=== PATIENT | female | born 1945 | race Caucasian/White ===

== ENCOUNTER 2021-10-17 10:40 | Emergency (ER) | payer MEDICARE, MEDICAID ==
[~2021-10-17] VITALS: Ht 170 cm; Wt 77.0 kg
[2021-10-17] MEDS ORDERED: ONDANSETRON 4 MG/2 ML (SDV) Z0FRAN ONE (10:50)
[2021-10-17] MEDS ORDERED: fentaNYL INJ 100 MCG/2 ML AMP ONE (10:51)
[2021-10-17] MEDS ORDERED: NS IV 500 ML 500 ML ONE (10:51)
[2021-10-17 10:57] LABS: BASOPHILS % (AUTO) 0 % (0-10); EOSINOPHILS # (AUTO) 0.1 10^3/uL (0.0-0.3); EOSINOPHILS % (AUTO) 1 % (0-10); HEMATOCRIT 28 % (35-52); HEMOGLOBIN 8.2 g/dL (11.5-16.0); LYMPHOCYTES # (AUTO) 0.6 10^3/uL (1.0-4.0); LYMPHOCYTES % (AUTO) 9 % (12-44); MEAN CORPUSCULAR HEMOGLOBIN 28 pg (25-34); MEAN CORPUSCULAR HGB CONC 29 g/dL (32-36); MEAN CORPUSCULAR VOLUME 96 fL (80-99); MEAN PLATELET VOLUME 10.2 fL (9.0-12.2); MONOCYTES # (AUTO) 0.6 10^3/uL (0.0-1.0); MONOCYTES % (AUTO) 9 % (0-12); NEUTROPHILS # (AUTO) 5.2 10^3/uL (1.8-7.8); NEUTROPHILS % (AUTO) 80 % (42-75); PLATELET COUNT 117 10^3/uL (130-400); WHITE BLOOD COUNT 6.4 10^3/uL (4.3-11.0)
--- NOTE | 2021-10-17 10:58 | ED Abdominal Pain ---
General Chief Complaint: Abdominal/GI Problems Stated Complaint: ABD PAIN Nursing Triage Note: PT ARRIVED PER EMS FROM [facility]. PT CO OF ABD PAIN L SIDE ABD. CO OF DIARRHEA. PT STATES HAS NAUSEA. PT IS A DIALYSIS PT AND HAS DIALAYSIS CATHETER IN L ARM. PT WEARS O2 2L. PT IS IN REHAB D/T FALLS. Source of Information: Patient, EMS, [facility]way Records Exam Limitations: No Limitations History of Present Illness Date Seen by Provider: Oct 17, 2021 Time Seen by Provider: 10:41 Initial Comments The patient presents ER by EMS from [facility] where she has been for 5 days doing rehab after a history of multiple falls and subdural hemorrhage. She started having some pain yesterday evening in her left lower quadrant abdomen. This morning it was 10 out of 10. She is having copious loose diarrhea without blood in it. She was given a pain pill which she says did nothing for her pain. She has a history of gallbladder resection, appendectomy, hysterectomy. She has nausea but no vomiting. No fevers or chills. She does not know if she has a history of diverticulosis but denies a history of diverticulitis. She has no sick contacts. She is on hemodialysis and has a history of diabetes with a sugar of 95 per EMS. 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 She was due for dialysis today but elected to come to the ER instead. She can make it up on Sunday outpatient per staff. She is a full code. He has a history of COPD on 2 L of oxygen at baseline with no increased shortness of breath. She is on MiraLAX and Colace daily scheduled for loose stools. Patient states that earlier in the year she had lots of loose stools and some abdominal pain but nothing like this and was sent to [facility] and had a colonoscopy. She does not know the outcome of that work-up. Primary care in [facility]. She has never been to this facility before. Allergies and Home Medications Allergies Coded Allergies: bisacodyl (Verified Allergy, Unknown, 10/17/21) codeine (Verified Allergy, Unknown, 10/17/21) Patient Home Medication List Home Medication List Reviewed: Yes Review of Systems Review of Systems Constitutional: No chills EENTM: No Blurred Vision, No Double Vision Respiratory: Denies Cough, Denies Shortness of Air Cardiovascular: Denies Chest Pain, Denies Lightheadedness Gastrointestinal: See HPI; Denies Abdomen Distended; Abdominal Pain; Denies Constipated; Diarrhea, Nausea; Denies Vomiting Genitourinary: Denies Burning, Denies Discharge Musculoskeletal: No back pain, No joint pain All Other Systems Reviewed Negative Unless Noted: Yes Past Dqwpjay-Sxitun-Bkthah Hx Patient Social History Tobacco Use?: No Use of E-Cig and/or Vaping dev: No Physical Exam Vital Signs Vital Signs - First Documented 10/17/21 10:42 Temp 36.2 Pulse 61 Resp 16 B/P (MAP) 143/66 (91) Pulse Ox 100 O2 Delivery Nasal Cannula Capillary Refill : Less Than 3 Seconds Height/Weight/BMI Height: '" Weight: lbs. oz. kg; 26.00 BMI Method: General Appearance: mild distress, obese, other (Chronically ill) HEENT: PERRL/EOMI, pharynx normal Neck: full range of motion, supple, normal inspection Respiratory: lungs clear, normal breath sounds, no respiratory distress (Oxygen saturation in the upper 90s on 2 L at baseline), no accessory muscle use Cardiovascular: normal peripheral pulses (60s), regular rate, rhythm, no edema Peripheral Pulses: 2+ Dorsalis Pedis (R), 2+ Left Dors-Pedis (L) Gastrointestinal: normal bowel sounds, soft, tenderness (Left lower quadrant and suprapubic region) Extremities: non-tender, normal inspection, normal capillary refill Neurologic/Psychiatric: alert, oriented x 3, other (Mildly anxious) Skin: normal color, warm/dry Progress/Results/Core Measures Results/Orders Lab Results Laboratory Tests Test 10/17/21 10:46 10/17/21 10:53 10/17/21 11:15 Range/Units White Blood Count 6.4 4.3-11.0 10^3/uL Red Blood Count 2.91 L 3.80-5.11 10^6/uL Hemoglobin 8.2 L 11.5-16.0 g/dL Hematocrit 28 L 35-52 % Mean Corpuscular Volume 96 80-99 fL Mean Corpuscular Hemoglobin 28 25-34 pg Mean Corpuscular Hemoglobin Concent 29 L 32-36 g/dL Red Cell Distribution Width 15.1 H 10.0-14.5 % Platelet Count 117 L 130-400 10^3/uL Mean Platelet Volume 10.2 9.0-12.2 fL Immature Granulocyte % (Auto) 0 % Neutrophils (%) (Auto) 80 H 42-75 % Lymphocytes (%) (Auto) 9 L 12-44 % Monocytes (%) (Auto) 9 0-12 % Eosinophils (%) (Auto) 1 0-10 % Basophils (%) (Auto) 0 0-10 % Neutrophils # (Auto) 5.2 1.8-7.8 10^3/uL Lymphocytes # (Auto) 0.6 L 1.0-4.0 10^3/uL Monocytes # (Auto) 0.6 0.0-1.0 10^3/uL Eosinophils # (Auto) 0.1 0.0-0.3 10^3/uL Basophils # (Auto) 0.0 0.0-0.1 10^3/uL Immature Granulocyte # (Auto) 0.0 0.0-0.1 10^3/uL Percent Immature Platelet Fraction 3.3 0.0-7.6 % Sodium Level 132 L 135-145 MMOL/L Potassium Level 6.1 H 3.6-5.0 MMOL/L Chloride Level 97 L 98-107 MMOL/L Carbon Dioxide Level 24 21-32 MMOL/L Anion Gap 11 5-14 MMOL/L Blood Urea Nitrogen 51 H 7-18 MG/DL Creatinine 5.34 H 0.60-1.30 MG/DL Estimat Glomerular Filtration Rate 8 BUN/Creatinine Ratio 10 Glucose Level 81 70-105 MG/DL Calcium Level 10.1 8.5-10.1 MG/DL Corrected Calcium 10.7 H 8.5-10.1 MG/DL Total Bilirubin 0.7 0.1-1.0 MG/DL Aspartate Amino Transf (AST/SGOT) 51 H 5-34 U/L Alanine Aminotransferase (ALT/SGPT) 41 0-55 U/L Alkaline Phosphatase 481 H 40-136 U/L C-Reactive Protein High Sensitivity 3.95 H 0.00-0.50 MG/DL Total Protein 6.4 6.4-8.2 GM/DL Albumin 3.3 3.2-4.5 GM/DL Lipase 10 8-78 U/L Urine Color ORANGE Urine Clarity SL CLOUDY Urine pH 8.5 5-9 Urine Specific [place] 1.015 L 1.016-1.022 Urine Protein 2+ H NEGATIVE Urine Glucose (UA) NEGATIVE NEGATIVE Urine Ketones NEGATIVE NEGATIVE Urine Nitrite NEGATIVE NEGATIVE Urine Bilirubin NEGATIVE NEGATIVE Urine Urobilinogen 0.2 < = 1.0 MG/DL Urine Leukocyte Esterase 2+ H NEGATIVE Urine RBC (Auto) 3+ H NEGATIVE Urine RBC >100 H /HPF Urine WBC 2-5 /HPF Urine Crystals NONE /LPF Urine Bacteria TRACE /HPF Urine Casts NONE /LPF Urine Mucus NEGATIVE /LPF Urine Culture Indicated YES SARS-CoV-2 RNA (RT-PCR) Not Detected Not Detecte My Orders Orders - EMEKA CEDEÑO Ct Abdomen/Pelvis Wo (10/17/21 10:48) Ed Iv/Invasive Line Start (10/17/21 10:48) Ns Iv 500 Ml (Sodium Chloride 0.9%) (10/17/21 11:00) Ondansetron Injection (Zofran Injectio (10/17/21 11:00) Fentanyl Inj (Sublimaze Injection) (10/17/21 11:00) Pantoprazole Injection (Protonix Injecti (10/17/21 11:00) Cbc With Automated Diff (10/17/21 10:48) Comprehensive Metabolic Panel (10/17/21 10:48) Hs C Reactive Protein (10/17/21 10:48) Lipase (10/17/21 10:48) Ua Culture If Indicated (10/17/21 10:48) Straight Cath For Spec.-Adult (10/17/21 10:48) Ondansetron Injection (Zofran Injectio (10/17/21 10:50) Fentanyl Inj (Sublimaze Injection) (10/17/21 10:51) Ns Iv 500 Ml (Sodium Chloride 0.9%) (10/17/21 10:51) Covid 19 Inhouse Test (10/17/21 10:59) Urine Culture (10/17/21 10:53) Medications Given in ED Current Medications Medications Dose Ordered Sig/Kavon Route Start Time Stop Time Status Last Admin Dose Admin Fentanyl Citrate 50 mcg ONCE ONCE IVP 10/17/21 11:00 10/17/21 11:01 DC 10/17/21 10:55 50 MCG Ondansetron HCl 8 mg ONCE ONCE IVP 10/17/21 11:00 10/17/21 11:01 DC 10/17/21 10:55 8 MG Pantoprazole 40 mg ONCE ONCE IV 10/17/21 11:00 10/17/21 11:01 DC 10/17/21 10:57 40 MG Sodium Chloride 500 ml @ 0 mls/hr Q0M ONCE IV 10/17/21 11:00 10/17/21 11:01 DC 10/17/21 10:55 500 MLS/HR Vital Signs/I&O 10/17/21 10:42 Temp 36.2 Pulse 61 Resp 16 B/P (MAP) 143/66 (91) Pulse Ox 100 O2 Delivery Nasal Cannula Blood Pressure Mean: 91 Progress Progress Note #1: Time: 10:58 Progress Note Patient with 1 day of diarrheal disease. Differential includes diverticulitis, viral gastroenteritis/colitis, COVID, bowel obstruction, etc. UTI is also a possibility so we will get a straight cath urinary sample. Progress Note #2: Time: 13:07 Progress Note Hematuria is unclear perhaps from the trauma of being catheterized. She does not have any obvious kidney stone in the ureter. She does have some calcification seen in the kidneys. Is possible she could have passed 1 but her symptoms are nausea vomiting pain and diarrhea for the past 2 days. 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 She is sleeping when I went to revisit her. She says her pain is nearly gone and she is not having any nausea. We did offer her the opportunity to go back with some pain medicine nausea medicine and return precautions versus staying in the hospital and she is okay with going back to the [facility]. She will need to reestablish for her dialysis. Diagnostic Imaging Diagonstic Imaging: CT Plain Films/CT/US/NM/MRI: abdomen, pelvis Comments [facility] [place], [place] NAME: DAVID LOPEZ [facility] REC#: [id number] PT STATUS: REG ER : 1945 PHYSICIAN: EMEKA CEDEÑO MD ADMIT DATE: 10/17/21/ER Signed Date of Exam:10/17/21 CT ABDOMEN/PELVIS WO PROCEDURE: CT abdomen and pelvis without contrast. TECHNIQUE: Multiple contiguous axial images were obtained through the abdomen and pelvis without the use of intravenous contrast. Auto Exposure Controls were utilized during the CT exam to meet ALARA standards for radiation dose reduction. INDICATION: Left lower quadrant abdominal pain. COMPARISON: None. FINDINGS: Cardiomegaly. Small bilateral pleural effusions are partially visualized. Cardiac valve prosthesis. Cardiac pacer. Large pericardial effusion measuring up to 1.9 cm in thickness. Airspace consolidation in the lung bases, greater on the left. Cholecystectomy. Appendectomy. Hysterectomy. Small amount of free fluid dependently in the pelvis. The liver, pancreas, spleen, adrenals, collecting systems, and bladder are negative. Atrophic kidneys bilaterally. Advanced diffuse atherosclerotic calcifications. Nick mesentery. No free intraperitoneal air. No evidence of bowel obstruction. Moderate colonic diverticulosis. No findings specific for active diverticulitis. Prominence of the mesenteric lymph nodes in the upper abdomen about the nick mesentery without pati lymphadenopathy. No acute osseous findings. IMPRESSION: 1. Large pericardial effusion measuring up 1.9 cm in thickness. Cardiomegaly. 2. Bilateral pleural effusions and consolidation in the lung bases which could be due to atelectasis although pneumonitis is not excluded. 3. Nick mesentery and mildly prominent lymph nodes in the upper abdomen can be seen with mesenteric panniculitis. 4. Moderate colonic diverticulosis without evidence of active diverticulitis. 5. Small amount of free fluid dependently in the pelvis. Dictated by: Dictated on workstation # [id number] Dict: 10/17/21 1129 Trans: 10/17/21 1204 [id number] Interpreted by: CHLOE MUNOZ MD Electronically signed by: CHLOE MUNOZ MD 10/17/21 1204 Reviewed: Reviewed by Me Departure Impression Primary Impression: Gastroenteritis and colitis, viral Disposition: 01 HOME, SELF-CARE Condition: Stable Departure-Patient Inst. Decision time for Depature: 13:08 Referrals: NO,LOCAL PHYSICIAN (PCP/Family) Primary Care Physician Patient Instructions: Viral Gastroenteritis, Adult (DC), Diarrhea, Adult ED Add. Discharge Instructions: It seems like you have an infection of your gut most likely viral. This should get better in a few days. Drink plenty of fluids. Stick to a bland diet of foods consisting similar to bananas, rice, applesauce and toast. Have your nursing staff work on getting you set up for dialysis again. Hydrocodone 1 tablet every 4 hours as needed for abdominal pain. Ondansetron 1 to 2 tablets every 6 hours as needed for nausea or vomiting. Return to the ER promptly if you are having intractable symptoms despite these medications or you develop severe fever above 102.5 or other worrisome symptoms. If your symptoms not improving by the middle of this week then you need to follow-up with your primary care provider All discharge instructions reviewed with patient and/or family. Voiced understanding. Scripts Ondansetron (Ondansetron Odt) 4 Mg Tab.rapdis 4-8 MG PO Q6H PRN for NAUSEA/VOMITING, #12 TAB 0 Refills Prov: EMEKA CEDEÑO 10/17/21 Hydrocodone/Acetaminophen (Hydrocodone-Acetamin 5-325 mg) 5 Mg-325 Mg Tablet 1 TAB PO Q4H PRN for PAIN-MODERATE (5-7), #12 TAB 0 Refills Prov: EMEKA CEDEÑO 10/17/21 EMEKA CEDEÑO Oct 17, 2021 10:58
[2021-10-17 11:00] LABS: BILIRUBIN,URINE NEGATIVE (NEGATIVE); CLARITY,URINE SL CLOUDY; COLOR,URINE ORANGE; GLUCOSE, URINE (UA) NEGATIVE (NEGATIVE); KETONES,URINE NEGATIVE (NEGATIVE); LEUKOCYTE ESTERASE ,URINE 2+ (NEGATIVE); NITRITE,URINE NEGATIVE (NEGATIVE); PH,URINE 8.5 (5-9); PROTEIN,URINE 2+ (NEGATIVE)
[2021-10-17] MEDS ORDERED: PANTOPRAZOLE 40 MG (PROTONIX) VIAL IV ONE (11:00)
[2021-10-17] MEDS ORDERED: fentaNYL INJ 100 MCG/2 ML AMP IVP ONE (11:00)
[2021-10-17] MEDS ORDERED: NS IV 500 ML 500 ML IV ONE (11:00)
[2021-10-17] MEDS ORDERED: ONDANSETRON 4 MG/2 ML (SDV) Z0FRAN IVP ONE (11:00)
[2021-10-17 11:08] LABS: BACTERIA,URINE TRACE /HPF; RBC,URINE >100 /HPF
[2021-10-17 11:09] LABS: ALBUMIN 3.3 GM/DL (3.2-4.5); POTASSIUM 6.1 MMOL/L (3.6-5.0)
[2021-10-17 11:11] LABS: CALCIUM 10.1 MG/DL (8.5-10.1)
[2021-10-17 11:12] LABS: TOTAL PROTEIN 6.4 GM/DL (6.4-8.2)
[2021-10-17 11:14] LABS: BILIRUBIN,TOTAL 0.7 MG/DL (0.1-1.0)
[2021-10-17 11:15] LABS: CREATININE SERUM 5.34 MG/DL (0.60-1.30)
--- NOTE | 2021-10-17 11:42 | Diagnostic Imaging Report ---
PROCEDURE: CT abdomen and pelvis without contrast. TECHNIQUE: Multiple contiguous axial images were obtained through the abdomen and pelvis without the use of intravenous contrast. Auto Exposure Controls were utilized during the CT exam to meet ALARA standards for radiation dose reduction. INDICATION: Left lower quadrant abdominal pain. COMPARISON: None. FINDINGS: Cardiomegaly. Small bilateral pleural effusions are partially visualized. Cardiac valve prosthesis. Cardiac pacer. Large pericardial effusion measuring up to 1.9 cm in thickness. Airspace consolidation in the lung bases, greater on the left. Cholecystectomy. Appendectomy. Hysterectomy. Small amount of free fluid dependently in the pelvis. The liver, pancreas, spleen, adrenals, collecting systems, and bladder are negative. Atrophic kidneys bilaterally. Advanced diffuse atherosclerotic calcifications. Nick mesentery. No free intraperitoneal air. No evidence of bowel obstruction. Moderate colonic diverticulosis. No findings specific for active diverticulitis. Prominence of the mesenteric lymph nodes in the upper abdomen about the nick mesentery without pati lymphadenopathy. No acute osseous findings. IMPRESSION: 1. Large pericardial effusion measuring up 1.9 cm in thickness. Cardiomegaly. 2. Bilateral pleural effusions and consolidation in the lung bases which could be due to atelectasis although pneumonitis is not excluded. 3. Nick mesentery and mildly prominent lymph nodes in the upper abdomen can be seen with mesenteric panniculitis. 4. Moderate colonic diverticulosis without evidence of active diverticulitis. 5. Small amount of free fluid dependently in the pelvis. Dictated by: Dictated on workstation # [id number]
[2021-10-17] MEDS ORDERED: ONDA4TAB11 PO (13:12)
[2021-10-17] MEDS ORDERED: ACHD5005 PO (13:12)
[2021-10-17 13:20] VITALS: BP 147/56
[2021-10-17] MEDS ORDERED: HYDROcodone/APAP 5 MG/325 MG (LORTAB) TAB PO ONE (13:30)
== END 2021-10-17 13:31 | disposition home or self-care (01) ==
LOC: ER 10:44
DX: A08.4 Viral intestinal infection, unspecified (principal); N28.89 Other specified disorders of kidney and ureter; J44.9 Chronic obstructive pulmonary disease, unspecified; Z99.81 Dependence on supplemental oxygen; Z99.2 Dependence on renal dialysis; Z90.49 Acquired absence of other specified parts of digestive tract; Z90.710 Acquired absence of both cervix and uterus; Z20.822 Contact with and (suspected) exposure to COVID-19
CPT/HCPCS: 36415; 51701; 74176; 80053; 81000; 83690; 85025; 86141; 87088; 87636

== ENCOUNTER 2021-10-19 10:10 | Emergency (ER) | payer MEDICARE, MEDICAID ==
[~2021-10-19] VITALS: Ht 162 cm; Wt 73.0 kg
[~2021-10-19 10:10] MED LIST: ACHD5005 PO; ONDA4TAB11 PO
--- NOTE | 2021-10-19 10:26 | ED Abdominal Pain ---
General Chief Complaint: Abdominal/GI Problems Stated Complaint: ABD PAIN Source of Information: Patient, EMS Exam Limitations: No Limitations History of Present Illness Date Seen by Provider: Oct 19, 2021 Time Seen by Provider: 10:16 Initial Comments Patient presents ER by EMS from [facility] with chief complaint of intractable abdominal pain on the left side. She was seen 2 days ago and had labs and imaging which did noted she had mesenteric panniculitis. She was sent home with hydrocodone, nausea meds. They were unable to get her hydrocodone so. She has just been using Tylenol unsuccessfully. She says does not have much appetite. She also started having dark red tarry stools today. She has a history of hemodialysis for end-stage kidney disease and it is usually done Sunday. She was not able to complete dialysis today. No fevers chills nausea or vomiting at this time. Poor appetite. She is not on any blood thinners or antiplatelets. 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 Allergies and Home Medications Allergies Coded Allergies: bisacodyl (Verified Allergy, Unknown, 10/17/21) codeine (Verified Allergy, Unknown, 10/17/21) Patient Home Medication List Home Medication List Reviewed: Yes Hydrocodone/Acetaminophen (Hydrocodone-Acetamin 5-325 mg) 5 Mg-325 Mg Tablet, 1 TAB PO Q4H PRN for PAIN-MODERATE (5-7) Prescribed by: EMEKA CEDEÑO on 10/17/21 1312 Ondansetron (Ondansetron Odt) 4 Mg Tab.rapdis, 4-8 MG PO Q6H PRN for NAUSEA/VOMITING Prescribed by: EMEKA CEDEÑO on 10/17/21 1312 Review of Systems Review of Systems Constitutional: No chills, No fever, No malaise EENTM: No Blurred Vision, No Double Vision Respiratory: Denies Cough, Denies Shortness of Air Cardiovascular: Denies Chest Pain, Denies Lightheadedness Gastrointestinal: See HPI; Denies Abdomen Distended; Abdominal Pain; Denies Constipated; Diarrhea, Nausea, Poor Fluid Intake, Rectal Bleeding; Denies Vomiting Genitourinary: Denies Burning, Denies Discharge, Denies Drainage, Denies Frequency; Other (Decreased urine output at baseline.) All Other Systems Reviewed Negative Unless Noted: Yes Past Hqknbrz-Irleuw-Cumssx Hx Patient Social History Tobacco Use?: No Use of E-Cig and/or Vaping dev: No Substance use?: No Immunizations Up To Date First/Initial COVID19 Vaccinat: 2020 Past Medical History Surgery/Hospitalization HX: RENAL FAILURE, DIALYSIS, PACEMAKER, COPD Physical Exam Vital Signs Vital Signs - First Documented 10/19/21 10/19/21 10:10 12:10 Temp 36.8 Pulse 65 Resp 18 B/P (MAP) 112/90 Pulse Ox 100 O2 Flow Rate 3.00 Capillary Refill : Height/Weight/BMI Height: '" Weight: lbs. oz. kg; 26.00 BMI Method: General Appearance: mild distress, obese, other (Chronically ill) HEENT: PERRL/EOMI, normal ENT inspection, TMs normal, pharynx normal Neck: non-tender, full range of motion, supple, normal inspection Respiratory: lungs clear, normal breath sounds, no respiratory distress, no accessory muscle use Cardiovascular: normal peripheral pulses, regular rate, rhythm Gastrointestinal: normal bowel sounds, guarding, tenderness (Left upper and lower abdomen), other (No mesenteric signs or masses.) Extremities: normal range of motion, normal inspection, normal capillary refill Neurologic/Psychiatric: alert, normal mood/affect, oriented x 3 Skin: normal color, warm/dry Progress/Results/Core Measures Results/Orders Lab Results Laboratory Tests Test 10/19/21 10:40 10/19/21 10:55 10/19/21 13:20 10/19/21 13:46 Range/Units White Blood Count 6.4 4.3-11.0 10^3/uL Red Blood Count 2.56 L 3.80-5.11 10^6/uL Hemoglobin 7.3 L 11.5-16.0 g/dL Hematocrit 25 L 35-52 % Mean Corpuscular Volume 98 80-99 fL Mean Corpuscular Hemoglobin 29 25-34 pg Mean Corpuscular Hemoglobin Concent 29 L 32-36 g/dL Red Cell Distribution Width 15.4 H 10.0-14.5 % Platelet Count 134 130-400 10^3/uL Mean Platelet Volume 10.6 9.0-12.2 fL Immature Granulocyte % (Auto) 0 % Neutrophils (%) (Auto) 76 H 42-75 % Lymphocytes (%) (Auto) 11 L 12-44 % Monocytes (%) (Auto) 12 0-12 % Eosinophils (%) (Auto) 1 0-10 % Basophils (%) (Auto) 1 0-10 % Neutrophils # (Auto) 4.9 1.8-7.8 10^3/uL Lymphocytes # (Auto) 0.7 L 1.0-4.0 10^3/uL Monocytes # (Auto) 0.7 0.0-1.0 10^3/uL Eosinophils # (Auto) 0.1 0.0-0.3 10^3/uL Basophils # (Auto) 0.0 0.0-0.1 10^3/uL Immature Granulocyte # (Auto) 0.0 0.0-0.1 10^3/uL Sodium Level 132 L 135-145 MMOL/L Potassium Level 6.5 *H 3.6-5.0 MMOL/L Chloride Level 97 L 98-107 MMOL/L Carbon Dioxide Level 25 21-32 MMOL/L Anion Gap 10 5-14 MMOL/L Blood Urea Nitrogen 63 H 7-18 MG/DL Creatinine 5.66 H 0.60-1.30 MG/DL Estimat Glomerular Filtration Rate 7 BUN/Creatinine Ratio 11 Glucose Level 68 L 70-105 MG/DL Calcium Level 9.8 8.5-10.1 MG/DL Corrected Calcium 10.5 H 8.5-10.1 MG/DL Total Bilirubin 0.6 0.1-1.0 MG/DL Aspartate Amino Transf (AST/SGOT) 28 5-34 U/L Alanine Aminotransferase (ALT/SGPT) 28 0-55 U/L Alkaline Phosphatase 389 H 40-136 U/L C-Reactive Protein High Sensitivity 4.83 H 0.00-0.50 MG/DL Total Protein 5.5 L 6.4-8.2 GM/DL Albumin 3.1 L 3.2-4.5 GM/DL Lipase 8 8-78 U/L Urine Color YELLOW Urine Clarity CLOUDY Urine pH 7.5 5-9 Urine Specific [place] 1.010 L 1.016-1.022 Urine Protein 2+ H NEGATIVE Urine Glucose (UA) NEGATIVE NEGATIVE Urine Ketones NEGATIVE NEGATIVE Urine Nitrite NEGATIVE NEGATIVE Urine Bilirubin NEGATIVE NEGATIVE Urine Urobilinogen 0.2 < = 1.0 MG/DL Urine Leukocyte Esterase 2+ H NEGATIVE Urine RBC (Auto) 3+ H NEGATIVE Urine RBC 25-50 H /HPF Urine WBC 25-50 H /HPF Urine Crystals NONE /LPF Urine Bacteria LARGE H /HPF Urine Casts NONE /LPF Urine Mucus NEGATIVE /LPF Urine Culture Indicated YES Glucometer 58 *L 103 70-110 MG/DL Test 10/19/21 14:59 Range/Units Glucometer 120 H 70-110 MG/DL My Orders Orders - EMEKA CEDEÑO Ct Abdomen/Pelvis Wo (10/19/21 10:23) Ed Iv/Invasive Line Start (10/19/21 10:23) Ns Iv 500 Ml (Sodium Chloride 0.9%) (10/19/21 10:30) Fentanyl Inj (Sublimaze Injection) (10/19/21 10:30) Cbc With Automated Diff (10/19/21 10:23) Comprehensive Metabolic Panel (10/19/21 10:23) Hs C Reactive Protein (10/19/21 10:23) Lipase (10/19/21 10:23) Ua Culture If Indicated (10/19/21 10:23) Urine Culture (10/19/21 10:55) Ceftriaxone 1 Gm Pre-Mix (Rocephin 1 Gm (10/19/21 12:15) Blood Culture (10/19/21 12:04) Calc Gluc 1 Gm/100 Ml Ivpb (Calcium Gluc (10/19/21 13:15) Accucheck Stat ONCE (10/19/21 13:14) D50w (Emergency) Syringe (Dextrose 50% 5 (10/19/21 13:30) General/Regular (10/19/21 Lunch) D50w (Emergency) Syringe (Dextrose 50% 5 (10/19/21 13:26) Accucheck Stat ONCE (10/19/21 13:39) Hydrocodone/Apap 5/325 Tablet (Lortab 5 (10/19/21 14:00) Ekg Tracing (10/19/21 13:53) Continuous Ekg Monitoring (10/19/21 13:53) Medications Given in ED Current Medications Medications Dose Ordered Sig/Kavon Route Start Time Stop Time Status Last Admin Dose Admin Acetaminophen/ Hydrocodone Bitart 1 ea ONCE ONCE PO 10/19/21 14:00 10/19/21 14:01 DC 10/19/21 13:58 1 EA Calcium Gluconate/ Sodium Chloride 100 ml @ 120 mls/hr ONCE ONCE IV 10/19/21 13:15 10/19/21 14:04 DC 10/19/21 13:34 120 MLS/HR Ceftriaxone Sodium/Dextrose 50 ml @ 100 mls/hr ONCE ONCE IV 10/19/21 12:15 10/19/21 12:44 DC 10/19/21 12:30 100 MLS/HR Dextrose 25 ml ONCE ONCE IV 10/19/21 13:30 10/19/21 13:31 DC 10/19/21 13:30 25 ML Fentanyl Citrate 50 mcg ONCE ONCE IVP 10/19/21 10:30 10/19/21 10:31 DC 10/19/21 10:48 50 MCG Sodium Chloride 500 ml @ 0 mls/hr Q0M ONCE IV 10/19/21 10:30 10/19/21 10:31 DC 10/19/21 10:48 999 MLS/HR Vital Signs/I&O 10/19/21 10/19/21 10:10 12:10 Temp 36.8 36.6 Pulse 65 Resp 18 18 B/P (MAP) 112/90 Pulse Ox 100 99 O2 Flow Rate 3.00 2.00 Progress Progress Note : Time: 13:24 Progress Note Pt more comfortable after 50 mcg fentanyl but repeat glucose 58 so a 1/2 amp of D50 given. Ca Gluconate IV. Will feed. She will merit inpatient dialysis, glucose monitoring, antibiotics. We will give her a gram of Rocephin. 2 days ago she had a urine specimen by straight catheter which revealed some blood but no white count or bacteria. Today she has significant elevated white count and bacteria on urinalysis by straight cath. No fevers, complaints of dysuria or elevated white count in the blood Initial ECG Impression Date: Oct 19, 2021 Initial ECG Impression Time: 14:42 Initial ECG Rate: 64 Initial ECG Rhythm: Normal Sinus Initial ECG Intervals: Normal Initial ECG Impression: Normal Comment Normal sinus rhythm without clinically relevant ST elevation or depression. Low amplitude QRS. No peaked T waves. Diagnostic Imaging Diagonstic Imaging: CT Plain Films/CT/US/NM/MRI: abdomen, pelvis Comments [facility] [place], [place] NAME: DAVID LOPEZ [facility] REC#: [id number] PT STATUS: REG ER : 1945 PHYSICIAN: EMEKA CEDEÑO MD ADMIT DATE: 10/19/21/ER Draft Date of Exam:10/19/21 CT ABDOMEN/PELVIS WO PROCEDURE: CT abdomen and pelvis without contrast. TECHNIQUE: Multiple contiguous axial images were obtained through the abdomen and pelvis without the use of intravenous contrast. Auto Exposure Controls were utilized during the CT exam to meet ALARA standards for radiation dose reduction. INDICATION: Left lower quadrant pain. Comparison is made with recent CT study of the abdomen and pelvis performed 10/17/2021. FINDINGS: A large pericardial effusion is again noted. There are small bilateral pleural effusions with bibasilar infiltrates or atelectasis, similar to 2 days earlier. The liver is unremarkable. Gallbladder is surgically absent. The pancreas and spleen are unremarkable. No adrenal mass is detected. Kidneys are small. There is no hydronephrosis. Aorta is heavily calcified but nonaneurysmal. Minimal hazy density to the central mesentery is similar to prior study. The bowel loops are nonobstructed. There is some generalized diverticulosis but no evidence of acute diverticulitis. There is no free air. Bladder is decompressed. IMPRESSION: Overall appearance to the abdomen and pelvis is similar to exam from 2 days earlier. There continues to be pericardial and pleural effusions with bibasilar infiltrates or atelectasis. There is some free fluid in the pelvis as well. Uncomplicated diverticulosis appears similar to prior study. Again noted is a somewhat nick appearance to the central mesentery which can be seen with mesenteric panniculitis. No new abnormality is identified. Dictated on workstation # [id number] Dict: 10/19/21 1123 Trans: 10/19/21 1131 [id number] Interpreted by: ARTURO ALVARADO MD Electronically signed by: Reviewed: Reviewed by Me Departure Impression Primary Impression: UTI (urinary tract infection) Qualified Codes: N30.01 - Acute cystitis with hematuria Additional Impressions: Mesenteric panniculitis Hyperkalemia Hemodialysis patient Lower GI bleed Hypoglycemia Disposition: XFER SHT-TRM HOSP Condition: Stable Transfer Transfer Reason: Exceeds level of care (no Inpt HD) Time Spoke to Accepting Phy: 13:50 Transfer Progress Notes 1300: [facility] triage. Paged IM. 1350: Discussed the case with Dr. Foster, internal medicine who agrees with transfer. He feels the urine is likely colonization. Transfer Facility: [facility] [place] Method of Transfer: EMS Departure-Patient Inst. Referrals: NO,LOCAL PHYSICIAN (PCP/Family) Primary Care Physician EMEKA CEDEÑO Oct 19, 2021 10:26
[2021-10-19] MEDS ORDERED: fentaNYL INJ 100 MCG/2 ML AMP IVP ONE (10:30)
[2021-10-19] MEDS ORDERED: NS IV 500 ML 500 ML IV ONE (10:30)
[2021-10-19 10:49] LABS: BASOPHILS % (AUTO) 1 % (0-10); EOSINOPHILS # (AUTO) 0.1 10^3/uL (0.0-0.3); EOSINOPHILS % (AUTO) 1 % (0-10); HEMATOCRIT 25 % (35-52); HEMOGLOBIN 7.3 g/dL (11.5-16.0); LYMPHOCYTES # (AUTO) 0.7 10^3/uL (1.0-4.0); LYMPHOCYTES % (AUTO) 11 % (12-44); MEAN CORPUSCULAR HEMOGLOBIN 29 pg (25-34); MEAN CORPUSCULAR HGB CONC 29 g/dL (32-36); MEAN CORPUSCULAR VOLUME 98 fL (80-99); MEAN PLATELET VOLUME 10.6 fL (9.0-12.2); MONOCYTES # (AUTO) 0.7 10^3/uL (0.0-1.0); MONOCYTES % (AUTO) 12 % (0-12); NEUTROPHILS # (AUTO) 4.9 10^3/uL (1.8-7.8); NEUTROPHILS % (AUTO) 76 % (42-75); PLATELET COUNT 134 10^3/uL (130-400); WHITE BLOOD COUNT 6.4 10^3/uL (4.3-11.0)
[2021-10-19 11:02] LABS: BILIRUBIN,URINE NEGATIVE (NEGATIVE); CLARITY,URINE CLOUDY; COLOR,URINE YELLOW; GLUCOSE, URINE (UA) NEGATIVE (NEGATIVE); KETONES,URINE NEGATIVE (NEGATIVE); LEUKOCYTE ESTERASE ,URINE 2+ (NEGATIVE); NITRITE,URINE NEGATIVE (NEGATIVE); PH,URINE 7.5 (5-9); PROTEIN,URINE 2+ (NEGATIVE)
[2021-10-19 11:03] LABS: ALBUMIN 3.1 GM/DL (3.2-4.5)
[2021-10-19 11:04] LABS: CALCIUM 9.8 MG/DL (8.5-10.1)
[2021-10-19 11:05] LABS: TOTAL PROTEIN 5.5 GM/DL (6.4-8.2)
[2021-10-19 11:07] LABS: BILIRUBIN,TOTAL 0.6 MG/DL (0.1-1.0)
[2021-10-19 11:09] LABS: CREATININE SERUM 5.66 MG/DL (0.60-1.30)
[2021-10-19 11:17] LABS: BACTERIA,URINE LARGE /HPF; RBC,URINE 25-50 /HPF; WBC,URINE 25-50 /HPF
[2021-10-19 11:18] LABS: POTASSIUM 6.5 MMOL/L (3.6-5.0)
--- NOTE | 2021-10-19 11:31 | Diagnostic Imaging Report ---
PROCEDURE: CT abdomen and pelvis without contrast. TECHNIQUE: Multiple contiguous axial images were obtained through the abdomen and pelvis without the use of intravenous contrast. Auto Exposure Controls were utilized during the CT exam to meet ALARA standards for radiation dose reduction. INDICATION: Left lower quadrant pain. Comparison is made with recent CT study of the abdomen and pelvis performed 10/17/2021. FINDINGS: A large pericardial effusion is again noted. There are small bilateral pleural effusions with bibasilar infiltrates or atelectasis, similar to 2 days earlier. The liver is unremarkable. Gallbladder is surgically absent. The pancreas and spleen are unremarkable. No adrenal mass is detected. Kidneys are small. There is no hydronephrosis. Aorta is heavily calcified but nonaneurysmal. Minimal hazy density to the central mesentery is similar to prior study. The bowel loops are nonobstructed. There is some generalized diverticulosis but no evidence of acute diverticulitis. There is no free air. Bladder is decompressed. IMPRESSION: Overall appearance to the abdomen and pelvis is similar to exam from 2 days earlier. There continues to be pericardial and pleural effusions with bibasilar infiltrates or atelectasis. There is some free fluid in the pelvis as well. Uncomplicated diverticulosis appears similar to prior study. Again noted is a somewhat nick appearance to the central mesentery which can be seen with mesenteric panniculitis. No new abnormality is identified. Dictated by: Dictated on workstation # [id number]
[2021-10-19] MEDS ORDERED: cefTRIAXone 1 GM PRE-MIX 50 ML IV ONE (12:15)
[2021-10-19] MEDS ORDERED: CALC GLUC 1 GM/100 ML IVPB 100 ML IV ONE (13:15)
[2021-10-19] MEDS ORDERED: DEXTROSE 50% 50 ML (IMS) SYR ONE (13:26)
[2021-10-19] MEDS ORDERED: DEXTROSE 50% 50 ML (IMS) SYR IV ONE (13:30)
[2021-10-19] MEDS ORDERED: HYDROcodone/APAP 5 MG/325 MG (LORTAB) TAB PO ONE (14:00)
== END 2021-10-19 15:00 | disposition short-term general hospital (02) ==
LOC: EDUNIT# 10:10 → ER 10:11
DX: N39.0 Urinary tract infection, site not specified (principal); K65.4 Sclerosing mesenteritis; K92.2 Gastrointestinal hemorrhage, unspecified; E87.5 Hyperkalemia; E16.2 Hypoglycemia, unspecified; D72.829 Elevated white blood cell count, unspecified; N18.6 End stage renal disease; T40.2X6A Underdosing of other opioids, initial encounter; E66.9 Obesity, unspecified; Z91.15 Patient's noncompliance with renal dialysis; Z99.2 Dependence on renal dialysis; Z68.26 Body mass index [BMI] 26.0-26.9, adult
CPT/HCPCS: 36415; 74176; 80053; 81000; 82947; 83690; 85025; 86141; 87040; 87077; 87088; 93005